=== PATIENT | male | born 1950 | race Caucasian/White ===

== ENCOUNTER 2019-02-12 20:56 | Emergency (ER) | payer SELFPAY ==
[2019-02-12] MEDS ORDERED: BABY ASPIRIN 81 MG CHEW PO ONE (21:08)
[2019-02-12] MEDS ORDERED: Zofran 4 MG/2 ML VIAL IV ONE (21:08)
[2019-02-12] MEDS ORDERED: PROVENTIL 2.5 MG/3 ML NEB IH ONE ×2 (21:09→21:39)
[2019-02-12] MEDS ORDERED: solu-MEDROL 125 MG IV ONE (21:09)
[2019-02-12] MEDS ORDERED: solu-MEDROL 125 MG ONE (21:28)
[2019-02-12] MEDS ORDERED: Zofran 4 MG/2 ML VIAL ONE (21:28)
[2019-02-12] MEDS ORDERED: DUONEB 0.5-3 MG/3 ml Neb IH ONE (21:37)
--- NOTE | 2019-02-12 21:53 | ERPHSYRPT ---
- History of Present Illness Time Seen by Provider: 02/12/19 20:58 Source: patient, police Exam Limitations: no limitations Patient Subjective Stated Complaint: Pt was brought in by police to lab for a blood draw. After his blood draw he says everything "went out". Couldn't remember where he was or who he was with. Disoriented. Difficult time walking Triage Nursing Assessment: Pt alert. Brought in by police in wheelchair. Pt unsteady transferring to bed. Short of breath, pursed lip breathing Physician History: Patient brought in by police for near syncope. Patient was arrested for public intoxication tonight. He was having his blood drawn here in the hospital when he had an episode of near syncope. Possible vasovagal after getting his blood drawn. Location: generalized Quality: near syncope Radiation: none Severity: mild Duration just [employer] Timing: after getting blood drawn Modifying factors/associated signs and symptoms: patient is acutely intoxicated BAL of 250 Allergies/Adverse Reactions: lisinopril Allergy (Verified 02/12/19 21:10) Home Medications: Chlorthalidone 25 mg PO DAILY 02/12/19 [History] Hx Tetanus, Diphtheria Vaccination/Date Given: Yes Hx Influenza Vaccination/Date Given: No Hx Pneumococcal Vaccination/Date Given: No - Past Medical History Pertinent Past Medical History: No - Past Surgical History Past Surgical History: No - Social History Smoking Status: Current every day smoker How long have you smoked: 50 yrs Exposure to second hand smoke: Yes Drug Use: none Patient Lives Alone: No - Review of Systems Constitutional: No Fever, No Chills Eyes: No Symptoms Ears, Nose, & Throat: No Symptoms Respiratory: No Cough, No Dyspnea Cardiac: Other (near syncope ), No Chest Pain, No Edema, No Syncope Abdominal/Gastrointestinal: No Abdominal Pain, No Nausea, No Vomiting, No Diarrhea Genitourinary Symptoms: No Dysuria Musculoskeletal: No Back Pain, No Neck Pain Skin: No Rash Neurological: No Dizziness, No Focal Weakness, No Sensory Changes Psychological: No Symptoms Endocrine: No Symptoms All Other Systems: Reviewed and Negative Physical Exam - Nursing Vital Signs Nursing Vital Signs: Initial Vital Signs Pulse Rate 114 H 02/12/19 20:58 Respiratory Rate 24 02/12/19 20:58 Blood Pressure 142/113 02/12/19 20:58 O2 Sat by Pulse Oximetry 99 02/12/19 20:58 Pain Scale Pain Intensity 0 - [place] Coma Scale Best Eye Response ([place]): (4) open spontaneously Best Verbal Response ([place]): (5) oriented Best Motor Response ([place]): (6) obeys commands [place] Total: 15 - Physical Exam General Appearance: no apparent distress, alert Eye Exam: bilateral eye: PERRL, EOMI Ears, Nose, Throat Exam: normal ENT inspection, pharynx normal, moist mucous membranes Neck Exam: normal inspection, non-tender, supple, full range of motion Respiratory: normal breath sounds, lungs clear, No chest tenderness, No respiratory distress Cardiovascular: regular rate/rhythm, capillary refill <2 sec, No murmur, No pulse deficit Gastrointestinal: soft, No tenderness, No distention, No mass Back Exam: normal inspection, normal range of motion, No CVA tenderness, No vertebral tenderness Extremity Exam: normal inspection, normal range of motion, pelvis stable, No tenderness Mental Status: alert, oriented x 3, 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 Muscle bulk and tone are normal. Strength is full bilaterally. Reflexes: Reflexes are 2+ and symmetric at the biceps, triceps, knees, and ankles. Plantar responses are flexor. Sensory: Light touch sense are intact in bilateral upper and lower extremities. There is no sign of neglect. Coordination: Rapid alternating movements are intact. There is no dysmetria on ofyxba-kl-onyr and witb-cwsd-obtj. There are no abnormal or extraneous movements. Romberg is absent. Gait/Stance: Posture is normal. Gait is steady with normal steps, base, arm swing, and turning. Heel and toe walking are normal. Tandem gait is normal. - Course EKG Interpreted by Me: RATE, Sinus Rhythm Ordered Tests: Active Orders 24 hr Category Date Time Status Bottom Stop Attacher STAT Care 02/12/19 21:08 Active EKG-ER Only STAT Care 02/12/19 21:08 Active IV Insertion STAT Care 02/12/19 21:08 Active CHEST 2 VIEWS (PA AND LAT) Stat Exams 02/12/19 21:08 Taken CBC W DIFF Stat Lab 02/12/19 21:58 Completed CMP Stat Lab 02/12/19 21:58 Completed Manual Differential NC Stat Lab 02/12/19 21:58 Completed TROPONIN Q3H Lab 02/12/19 21:58 Completed UA W/RFX UR CULTURE Stat Lab 02/12/19 21:58 Completed EKG STAT RT 02/12/19 23:02 Active Peak Expiratory Flow Rate ONCE RT 02/12/19 21:40 Active Respiratory Therapy Assessment DAILY RT 02/12/19 21:40 Active Medication Summary Discontinued Medications Generic Name Dose Route Start Last Admin Trade Name Lina PRN Reason Stop Dose Admin Albuterol Sulfate 2.5 mg 02/12/19 21:09 02/12/19 21:41 Proventil 2.5 Mg/3 Ml Neb IH 02/12/19 21:10 2.5 mg STAT ONE Administration Albuterol Sulfate Confirm 02/12/19 21:39 Proventil 2.5 Mg/3 Ml Neb Administered 02/12/19 21:40 Dose 2.5 mg IH .STK-MED ONE Albuterol/Ipratropium Confirm 02/12/19 21:37 Duoneb 0.5-3 Mg/3 Ml Neb Administered 02/12/19 21:38 Dose 3 ml IH .STK-MED ONE Aspirin 324 mg 02/12/19 21:08 02/12/19 21:29 Baby Aspirin 81 Mg Chew PO 02/12/19 21:09 324 mg STAT ONE Administration Methylprednisolone Sodium Succinate 125 mg 02/12/19 21:09 02/12/19 21:29 Solu-Medrol 125 Mg IV 02/12/19 21:10 125 mg STAT ONE Administration Methylprednisolone Sodium Succinate Confirm 02/12/19 21:28 Solu-Medrol 125 Mg Administered 02/12/19 21:29 Dose 125 mg .ROUTE .STK-MED ONE Ondansetron HCl 4 mg 02/12/19 21:08 02/12/19 21:29 Zofran 4 Mg/2 Ml Vial IV 02/12/19 21:09 4 mg STAT ONE Administration Ondansetron HCl Confirm 02/12/19 21:28 Zofran 4 Mg/2 Ml Vial Administered 02/12/19 21:29 Dose 4 mg .ROUTE .STK-MED ONE Lab/Rad Data: Laboratory Result Diagrams 02/12/19 21:58 02/12/19 21:58 Laboratory Results 02/12/19 02/12/19 02/12/19 Range/Units 21:58 21:58 21:58 WBC (4.0-10.5) K/mm3 RBC (4.1-5.6) M/mm3 Hgb (12.5-18.0) gm/dl Hct (42-50) % MCV (78-100) fl MCH (26-32) pg MCHC (32-36) g/dl RDW (11.5-14.0) % Plt Count (150-450) K/mm3 MPV (6-9.5) fl Sodium 134 L (137-145) mmol/L Potassium 3.1 L (3.5-5.1) mmol/L Chloride 98 (98-107) mmol/L Carbon Dioxide 27 (22-30) mmol/L Anion Gap 11.7 (5-15) MEQ/L BUN 7 L (9-20) mg/dL Creatinine 0.81 (0.66-1.25) mg/dL Estimated GFR > 60.0 ML/MIN Glucose 118 H (74-106) mg/dL Calcium 8.0 L (8.4-10.2) mg/dL Total Bilirubin 0.30 (0.2-1.3) mg/dL AST 30 (17-59) U/L ALT 13 (0-50) U/L Alkaline Phosphatase 104 (38-126) U/L Troponin I < 0.012 (0.000-0.034) ng/mL Serum Total Protein 7.2 (6.3-8.2) g/dL Albumin 3.6 (3.5-5.0) g/dL Urine Color STRAW (YELLOW) Urine Appearance CLEAR (CLEAR) Urine pH 6.0 (5-6) Ur Specific [place] 1.004 (1.005-1.025) Urine Protein NEGATIVE (Negative) Urine Ketones NEGATIVE (NEGATIVE) Urine Blood NEGATIVE (0-5) Jaguar/ul Urine Nitrite NEGATIVE (NEGATIVE) Urine Bilirubin NEGATIVE (NEGATIVE) Urine Urobilinogen NEGATIVE (0-1) mg/dL Ur Leukocyte Esterase NEGATIVE (NEGATIVE) Urine WBC (Auto) NONE (0-5) /HPF Urine RBC (Auto) NONE (0-2) /HPF U Epithel Cells (Auto) NONE (FEW) /HPF Urine Bacteria (Auto) NONE (NEGATIVE) /HPF Urine Culture Reflexed NO (NO) Urine Glucose NEGATIVE (NEGATIVE) mg/dL 02/12/19 Range/Units 21:58 WBC 6.5 (4.0-10.5) K/mm3 RBC 3.51 L (4.1-5.6) M/mm3 Hgb 13.3 (12.5-18.0) gm/dl Hct 37.5 L (42-50) % MCV 106.8 H (78-100) fl MCH 37.9 H (26-32) pg MCHC 35.5 (32-36) g/dl RDW 13.7 (11.5-14.0) % Plt Count 232 (150-450) K/mm3 MPV 9.1 (6-9.5) fl Sodium (137-145) mmol/L Potassium (3.5-5.1) mmol/L Chloride (98-107) mmol/L Carbon Dioxide (22-30) mmol/L Anion Gap (5-15) MEQ/L BUN (9-20) mg/dL Creatinine (0.66-1.25) mg/dL Estimated GFR ML/MIN Glucose (74-106) mg/dL Calcium (8.4-10.2) mg/dL Total Bilirubin (0.2-1.3) mg/dL AST (17-59) U/L ALT (0-50) U/L Alkaline Phosphatase (38-126) U/L Troponin I (0.000-0.034) ng/mL Serum Total Protein (6.3-8.2) g/dL Albumin (3.5-5.0) g/dL Urine Color (YELLOW) Urine Appearance (CLEAR) Urine pH (5-6) Ur Specific [place] (1.005-1.025) Urine Protein (Negative) Urine Ketones (NEGATIVE) Urine Blood (0-5) Jaguar/ul Urine Nitrite (NEGATIVE) Urine Bilirubin (NEGATIVE) Urine Urobilinogen (0-1) mg/dL Ur Leukocyte Esterase (NEGATIVE) Urine WBC (Auto) (0-5) /HPF Urine RBC (Auto) (0-2) /HPF U Epithel Cells (Auto) (FEW) /HPF Urine Bacteria (Auto) (NEGATIVE) /HPF Urine Culture Reflexed (NO) Urine Glucose (NEGATIVE) mg/dL - Progress Progress: unchanged, improved Progress Note: 02/12/19 21:54 diff dx includes: STEMI, PNA, arrymitha, infection, UTI, intoxication, vasovagal syncope. - We willl obtain basic labs, fluids, EKG, troponin, chest x-ray - EKG shows no ST changes - my read. See full read below. - O2 saturations consistently greater than 95%. - CXR shows no pneumonia, pneumothorax - my read - no other obvious lab abnormalities 02/12/19 22:46 Patient feeling improved. Troponin negative. Most likely near syncope (vasovagal ) after getting his blood drawn. Repeat neurological exam remains negative. Counseled pt/family regarding: drug and/or alcohol abuse, lab results, diagnosis - Departure Departure Disposition: Home Clinical Impression: Near syncope Condition: Stable Critical Care Time: No Referrals: DOCTOR,NO FAMILY [Primary Care Provider] - Instructions: Alcohol Abuse and Alcoholism (DC) Additional Instructions: Reexam in 24-48 hours
[2019-02-12 21:55] LABS: Hematocrit 37.5 % (42-50); Hemoglobin 13.3 gm/dl (12.5-18.0); Mean Cell Volume 106.8 fl (78-100); Mean Corpuscular Hemoglobin 37.9 pg (26-32); Mean Corpuscular Hgb Concent. 35.5 g/dl (32-36); Mean Platelet Volume 9.1 fl (6-9.5); Platelet Count 232 K/mm3 (150-450); Red Blood Count 3.51 M/mm3 (4.1-5.6); Red Cell Distribution Width 13.7 % (11.5-14.0); White Blood Count 6.5 K/mm3 (4.0-10.5)
[2019-02-12 22:00] LABS: Appearance CLEAR (CLEAR); Bilirubin NEGATIVE (NEGATIVE); Blood NEGATIVE Ery/ul (0-5); Glucose NEGATIVE (NEGATIVE); Ketones NEGATIVE (NEGATIVE); Leukocyte Esterase NEGATIVE (NEGATIVE); Nitrite NEGATIVE (NEGATIVE); Protein,Urine Dip NEGATIVE (Negative); Specific Gravity 1.004 (1.005-1.025); Urobilinogen NEGATIVE mg/dL (0-1)
[2019-02-12 22:08] LABS: ALBUMIN 3.6 g/dL (3.5-5.0); ALKALINE PHOSPHATASE 104 U/L (38-126); ANION GAP 11.7 MEQ/L (5-15); BLOOD UREA NITROGEN 7 mg/dL (9-20); CHLORIDE 98 mmol/L (98-107); Carbon Dioxide 27 mmol/L (22-30); Creatinine 1 0.81 mg/dL (0.66-1.25); Glucose 118 mg/dL (74-106); Potassium 3.1 mmol/L (3.5-5.1); SGOT/AST 30 U/L (17-59); SGPT/ALT 13 U/L (0-50); SODIUM 134 mmol/L (137-145); Total Protein 7.2 g/dL (6.3-8.2)
[2019-02-12 23:13] VITALS: BP 104/80; PULSE 125
[2019-02-13 00:10] VITALS: O2SAT 99
[2019-02-13 00:14] LABS: ATYPICAL LYMPHS 2 %; Lymphocytes 46 % (24-44); Monocyte 2 % (0.0-12.0); Neutrophils 50 % (36.-66.); Platelet Estimate NORMAL (NORMAL); Total Cells Counted 100
--- NOTE | 2019-02-13 08:36 | XRAY ---
Indication: Short of breath. Comparison: October 02, 2017. PA/lateral chest again hyperinflated with right midlung calcified granuloma. No focal infiltrate, consolidation, or large effusion. Heart and mediastinal structures within normal limits. Bony thorax intact again with mild degenerative changes. Impression: Stable nonacute hyperinflated chest with chronic features.
== END 2019-02-13 00:10 | disposition home or self-care (01) ==
LOC: ED 20:56
DX: R55 Syncope and collapse (principal)
CPT/HCPCS: 36000; 36415; 71046; 80053; 81001; 84484; 85025; 93005; 93041; 94150; 94640; 96374; 96375; 99284; J2405; J2930; J7609; A9270-GY

== ENCOUNTER 2019-06-13 16:21 | Emergency (ER) | payer OTHER, MEDICARE ==
[2019-06-13 16:41] VITALS: BP 134/103
--- NOTE | 2019-06-13 17:06 | ERPHSYRPT ---
- History of Present Illness Time Seen by Provider: 06/13/19 17:02 Source: patient, police Exam Limitations: intoxication Patient Subjective Stated Complaint: pt is alert and oriented. pt is ambulatory with a steady gait. pt comes in with law enforcement. pt states he has had 3-4 beers with the last one being at 1300. no c/o pain. pt is calm and cooperative. Triage Nursing Assessment: see above Physician History: This is a 68-year-old white male who was brought in by the police department because of driving under the influence of alcohol. Patient is refusing blood draw patient denies any symptoms of chest pain, shortness of breath, abdominal pain at this time. Patient has said that he will allow an EKG to be performed but no lab draws and no urine to be obtained. The police state that this patient denies any other illicit drug use. Patient also denies any other illicit drug use to me as well. Timing/Duration: today Severity: mild Associated Symptoms: denies symptoms, No nausea, No vomiting, No abdominal pain , No shortness of breath, No chest pain, No headaches, No weakness Allergies/Adverse Reactions: lisinopril Allergy (Verified 06/13/19 16:41) Home Medications: Omeprazole 20 mg PO 06/13/19 [History] Hx Tetanus, Diphtheria Vaccination/Date Given: Yes Hx Influenza Vaccination/Date Given: No Hx Pneumococcal Vaccination/Date Given: No Travel Risk - International Travel Have you traveled outside of the country in past 3 weeks: No Have you or anyone close to you been diagnosed with or: No Do your reside in a community with a known COVID-19 case?: Yes If Yes where:: [place] - Coronavirus Screening Has patient experienced Coronavirus symptoms: No - Review of Systems Constitutional: No Symptoms Eyes: No Symptoms Ears, Nose, & Throat: No Symptoms Respiratory: No Symptoms Cardiac: No Symptoms Abdominal/Gastrointestinal: No Symptoms Genitourinary Symptoms: No Symptoms Musculoskeletal: No Symptoms Skin: Skin Lesions Neurological: No Symptoms Psychological: Alcohol Abuse Endocrine: No Symptoms Hematologic/Lymphatic: No Symptoms Immunological/Allergic: No Symptoms All Other Systems: Reviewed and Negative - Past Medical History Pertinent Past Medical History: No Neurological History: No Pertinent History ENT History: No Pertinent History Cardiac History: No Pertinent History Respiratory History: COPD Endocrine Medical History: No Pertinent History Musculoskeletal History: No Pertinent History GI Medical History: No Pertinent History History: No Pertinent History Psycho-Social History: No Pertinent History Male Reproductive Disorders: No Pertinent History Other Medical History: blood disorder - Past Surgical History Past Surgical History: No Neuro Surgical History: No Pertinent History Cardiac: No Pertinent History Respiratory: No Pertinent History Gastrointestinal: No Pertinent History Genitourinary: No Pertinent History Musculoskeletal: No Pertinent History Male Surgical History: No Pertinent History - Social History Smoking Status: Current every day smoker How long have you smoked: 50 yrs Exposure to second hand smoke: Yes Drug Use: none Patient Lives Alone: No - Nursing Vital Signs Nursing Vital Signs: Initial Vital Signs Temperature 97.8 F 06/13/19 16:21 Pulse Rate 105 H 06/13/19 16:21 Respiratory Rate 18 06/13/19 16:21 Blood Pressure 134/103 06/13/19 16:21 O2 Sat by Pulse Oximetry 97 06/13/19 16:21 Pain Scale Pain Intensity 0 - Physical Exam General Appearance: alert, other (Smells of alcohol) Eye Exam: PERRL/EOMI, eyes nml inspection Ears, Nose, Throat Exam: normal ENT inspection, moist mucous membranes, tonsillar exudate Neck Exam: normal inspection, non-tender, supple Respiratory Exam: normal breath sounds, lungs clear, airway intact, No chest tenderness, No respiratory distress Cardiovascular Exam: regular rate/rhythm, normal heart sounds, normal peripheral pulses Gastrointestinal/Abdomen Exam: soft, normal bowel sounds, No tenderness Rectal Exam: not done Back Exam: normal inspection, normal range of motion, No CVA tenderness, No vertebral tenderness Extremity Exam: normal inspection, normal range of motion, pelvis stable Neurologic Exam: alert, oriented x 3, cooperative, guard manager II-XII nml as tested, intoxicated appearance Skin Exam: normal color, warm, dry Lymphatic Exam: No adenopathy SpO2 Interpretation: normal SpO2: 97 O2 Delivery: Room Air - Course Nursing assessment & vital signs reviewed: Yes EKG Interpreted by Me: RATE (103), Sinus Rhythm, Sinus Tach, NORMAL AXIS, NORMAL INTERVALS, NORMAL QRS, Other (No comparison EKG available) Ordered Tests: Active Orders 24 hr Category Date Time Status Clean Catch Urine Specimen STAT Care 06/13/19 17:15 Active UA W/RFX UR CULTURE Stat Lab 06/13/19 17:30 Completed Urine Triage Profile Stat Lab 06/13/19 17:30 Completed Lab/Rad Data: Laboratory Results 06/13/19 06/13/19 Range/Units 17:30 17:30 Urine Color STRAW (YELLOW) Urine Appearance CLEAR (CLEAR) Urine pH 6.0 (5-6) Ur Specific [place] 1.004 (1.005-1.025) Urine Protein NEGATIVE (Negative) Urine Ketones NEGATIVE (NEGATIVE) Urine Blood NEGATIVE (0-5) Jaguar/ul Urine Nitrite NEGATIVE (NEGATIVE) Urine Bilirubin NEGATIVE (NEGATIVE) Urine Urobilinogen NEGATIVE (0-1) mg/dL Ur Leukocyte Esterase NEGATIVE (NEGATIVE) Urine WBC (Auto) NONE (0-5) /HPF Urine RBC (Auto) NONE (0-2) /HPF U Epithel Cells (Auto) NONE (FEW) /HPF Urine Bacteria (Auto) NONE (NEGATIVE) /HPF Urine Culture Reflexed NO (NO) Urine Glucose NEGATIVE (NEGATIVE) mg/dL Urine Opiates Level NEGATIVE (NEGATIVE) Ur Methadone NEGATIVE (NEGATIVE) Urine Barbiturates NEGATIVE (NEGATIVE) Ur Phencyclidine (PCP) NEGATIVE (NEGATIVE) Urine Amphetamine NEGATIVE (NEGATIVE) U Benzodiazepine Level NEGATIVE (NEGATIVE) Urine Cocaine NEGATIVE (NEGATIVE) Urine Marijuana (THC) NEGATIVE (NEGATIVE) - Progress Progress: unchanged Progress Note: 06/13/19 17:47 At time of discharge patient denies any chest pain or abdominal pain or shortness of breath. Counseled pt/family regarding: lab results, diagnosis - Departure Departure Disposition: Home, Snf/Jail Clinical Impression: Medical clearance for incarceration Condition: Stable Critical Care Time: No Referrals: DOCTOR,NO FAMILY [Primary Care Provider] -
[2019-06-13 17:26] LABS: Appearance CLEAR (CLEAR); Bilirubin NEGATIVE (NEGATIVE); Blood NEGATIVE Ery/ul (0-5); Glucose NEGATIVE (NEGATIVE); Ketones NEGATIVE (NEGATIVE); Leukocyte Esterase NEGATIVE (NEGATIVE); Nitrite NEGATIVE (NEGATIVE); Protein,Urine Dip NEGATIVE (Negative); Specific Gravity 1.004 (1.005-1.025); Urobilinogen NEGATIVE mg/dL (0-1)
[2019-06-13 17:40] LABS: Amphetamine,Urine NEGATIVE (NEGATIVE); Barbiturate,Urine NEGATIVE (NEGATIVE); Benzodiazepine,Urine NEGATIVE (NEGATIVE); Cocaine,Urine NEGATIVE (NEGATIVE); Methadone,Urine NEGATIVE (NEGATIVE); Opiate,Urine NEGATIVE (NEGATIVE); PCP,Urine NEGATIVE (NEGATIVE); THC,Urine NEGATIVE (NEGATIVE)
[2019-06-13 17:57] VITALS: PULSE 114; O2SAT 95
== END 2019-06-13 18:03 | disposition home or self-care (01) ==
LOC: ED 16:21
DX: Z02.89 Encounter for other administrative examinations (principal); Z72.89 Other problems related to lifestyle
CPT/HCPCS: 80307; 81001; 99283

== ENCOUNTER 2022-04-12 06:26 | Emergency (ER) | payer MEDICARE, OTHER ==
[2022-04-12 06:58] VITALS: BP 126/84; PULSE 74; O2SAT 97
--- NOTE | 2022-04-12 07:13 | ERPHSYRPT ---
- History of Present Illness Time Seen by Provider: 04/12/22 07:08 Source: patient, police Exam Limitations: physical impairment (very hard of hearing) Patient Subjective Stated Complaint: per uniform patrol police officer, pt fell out of bed this am at approx 0530. pt states the fall woke him up, and then he went back to sleep. Triage Nursing Assessment: pt alert and oriented. very [place]. able to answer questions approp. pt ambulates into the room. respirations nonlabored. skin warm and dry. laceration to face between eyes approx 1.5cm with minimal bleeding. skin tear to lt elbow with no bleeding. pt denies any back or neck pain. denies any other injury. Physician History: pt fell out of bed this am at approx 0530. pt states the fall woke him up, and then he went back to sleep. laceration to face between eyes approx 1.5cm with minimal bleeding. skin tear to lt elbow with no bleeding. pt denies any back or neck pain. denies any other injury. Timing/Duration: today Severity: mild Associated Symptoms: denies symptoms Allergies/Adverse Reactions: lisinopril Allergy (Verified 04/12/22 06:58) Home Medications: Omeprazole 20 mg PO DAILY 06/13/19 [History] Hx Tetanus, Diphtheria Vaccination/Date Given: Yes (2020) Hx Influenza Vaccination/Date Given: No Hx Pneumococcal Vaccination/Date Given: No Immunizations Up to Date: Yes Travel Risk - International Travel Have you traveled outside of the country in past 3 weeks: No - Coronavirus Screening Are you exhibiting any of the following symptoms?: No Close contact with a COVID-19 positive Pt in past 14-21 Days: No - Vaccine Status Have you recieved a Covid-19 vaccination: Yes Medical Science Liaison: Moderna - Vaccination Dates Date of 2cond Vaccination (if applicable): 2020 - Review of Systems Constitutional: No Symptoms Eyes: No Symptoms Ears, Nose, & Throat: No Symptoms Respiratory: No Symptoms Cardiac: No Symptoms Abdominal/Gastrointestinal: No Symptoms Genitourinary Symptoms: No Symptoms Musculoskeletal: No Symptoms Skin: Other (laceration in middle of forehaed in middle of eye ball) Psychological: Alcohol Abuse Hematologic/Lymphatic: No Symptoms Immunological/Allergic: No Symptoms - Past Medical History Pertinent Past Medical History: No Other Medical History: pt denies medical problems - Past Surgical History Past Surgical History: No - Social History Smoking Status: Current some day smoker How long have you smoked: 50 yrs Exposure to second hand smoke: Yes Drug Use: none Patient Lives Alone: No - Nursing Vital Signs Nursing Vital Signs: Initial Vital Signs Temperature 96.7 F 04/12/22 06:32 Pulse Rate 74 04/12/22 06:32 Respiratory Rate 16 04/12/22 06:32 Blood Pressure 126/84 04/12/22 06:32 O2 Sat by Pulse Oximetry 97 04/12/22 06:32 Pain Scale Pain Intensity 0 - Physical Exam General Appearance: no apparent distress Eye Exam: PERRL/EOMI Ears, Nose, Throat Exam: normal ENT inspection, other (laceration as described per HPI) SpO2: 97 Procedures - Laceration/Wound Repair Head Time of Procedure: 07:11 Wound Location: forehead Wound Length (cm): 2 Wound's Depth, Shape: superficial Wound Explored: clean Irrigated: Yes Hibiclens Prep: Yes Wound Repaired With: Steri-strips - Course Nursing assessment & vital signs reviewed: Yes Ordered Tests: Active Orders 24 hr Category Date Time Status Wound Care STAT Care 04/12/22 07:07 Active - Progress Progress: improved Counseled pt/family regarding: diagnosis, need for follow-up Medical Desision Making - Discussion of managment Agreed on:: Treatment plan, need for follow-up - Risk of complications Minimal Risk: Minimal risk of morbidity - Departure Departure Disposition: Usp/Group Home Clinical Impression: Fall from bed, initial encounter Laceration of head Qualifiers: Encounter type: initial encounter Location of open wound of head: unspecified part of head Foreign body presence: without foreign body Qualified Code(s): S01.91XA - Laceration without foreign body of unspecified part of head, initial encounter Condition: Stable Critical Care Time: No Referrals: DOCTOR,NO FAMILY [Primary Care Provider] - Follow up/PCP as directed Instructions: Wound Care (DC) Additional Instructions: Discharge/Care Plan BERNARDTHIAGO WONG was seen on 04/12/22 in the Emergency Room. The patient was counseled regarding Diagnosis,Lab results, Imaging studies, need for follow up and when to return to the Emergency Room. Prescriptions given: Discharge Note I have spoken with the patient and/or caregivers. I have explained the patient's condition, diagnosis and treatment plan based on the information available to me at this time. I have answered the patient's and/or caregiver's questions and addressed any concerns. The patient and/or caregivers have as good understanding of the patient's diagnosis, condition and treatment plan as can be expected at this point. The vital signs have been stable. The patient's condition is stable and appropriate for discharge from the emergency department. The patient will pursue further outpatient evaluation with the primary care physician or other designated or consulting physician as outlined in the discharge instructions. The patient and/or caregivers are agreeable to this plan of care and follow-up instructions have been explained in detail. The patient and/or caregivers have received these instruction. The patient/and or caregivers are aware that any significant change in condition or worsening of symptoms should prompt an immediate return to this or the closest emergency department or call 911. BERNARDTHIAGO JUDITH was seen on 04/12/22 n the Emergency Room. At that time you were treated for an emergent condition, during your visit Laboratory, Radiology and/or other procedures may have been ordered. It is very important that you follow-up with your Primary Care Physician NO FAMILY DOCTOR within the next 24- 48 hours to review your Emergency Room visit and the final results of testing that was ordered. Some test results such as Urine Cultures, Blood Cultures, and other cultures if ordered will not be finalized for 24-48 hours. If you do not have a Primary Care Provider please call the medical records department at [phone] ext [phone] to obtain a copy of your results or you may sign into our patient portal to obtain these results by visiting us @ [email or web address] and completing the following steps: 1. Click on the Patient Portal link 2. Click the Patient Self Enrollment Link to complete the enrollment form and entering your 3. Once the enrollment form is completed you will receive an email with a [employer] porary ID and password at the email address you provided. 4. Next choose a user name and password. Your user name must be at least 4 characters long and your password must be at least 4 characters long. 5. Choose a security question from the list and provide your answer to the question. If you already have signed into the Health Portal you may access your Health Care Information 15/09 by the following steps: 1. Login to our website @ [email or web address] 2. Enter your original user name and password. FAQS The [facility] Health Portal is an online tool that contains your Lab Results, Radiology Reports, Visit History, Discharge Instructions and Health Summary Lab and Radiology Results will not be available for 72 hours on the portal. The Portal is a secure site, passwords are encryted and URLs are re-written so they cannot be copied and pasted. You and authorized family members are the only ones who can access your Portal. Also there is a timeout feature that protects your information if you leave the Portal page open. If you have technical difficulty please use the Contact Us link on the page this will allow you to submit any questions you have regarding the Portal or you may contact the Medical Record Department at [phone] ext [phone].
== END 2022-04-12 07:27 | disposition home or self-care (01) ==
LOC: ED 06:26
DX: S01.81XA Laceration without foreign body of other part of head, initial encounter (principal); W06.XXXA Fall from bed, initial encounter; Y93.84 Activity, sleeping; Y92.143 Cell of prison as the place of occurrence of the external cause; Z72.0 Tobacco use
CPT/HCPCS: 12011; 99281

== ENCOUNTER 2024-07-09 17:22 | Emergency (ER) | payer MEDICARE ==
--- NOTE | 2024-07-09 17:35 | ERPHSYRPT ---
- History of Present Illness Time Seen by Provider: 07/09/24 17:35 Source: patient, EMS, old records Exam Limitations: no limitations Physician History: This is an ill-appearing 73-year-old white male patient with no primary care provider who was brought to the emergency department by the conventions assistant service with several different complaints. The patient is not the best historian. Additional, independent history was provided by the paramedics as well as the patient's spouse. Patient's spouse states that there was a fall on 07/04/2024 and he hit his right chest wall. He usually walks around with his walker and in the subsequent few days he quit walking around his walker and in the last 1 to 2 days he has not really gotten out of bed. He has been very weak. He has significantly decreased his appetite and he is not eating and occasionally drinks coffee. A left flank to left lower quadrant skin rash has been present for 2 days. The only medical issue he has documented is gastroesophageal reflux disease. Timing/Duration: day(s) (5), worse (Symptoms worsening over the last 5 days) Severity: moderate Associated Symptoms: weakness, other (Right rib pain, painful left lower quadrant rash) Allergies/Adverse Reactions: lisinopril Allergy (Verified 04/12/22 06:58) Home Medications: Omeprazole 20 mg PO DAILY 06/13/19 [History] Hx Tetanus, Diphtheria Vaccination/Date Given: Yes (2020) Hx Influenza Vaccination/Date Given: No Hx Pneumococcal Vaccination/Date Given: No Travel Risk - International Travel Have you traveled outside of the country in past 3 weeks: No - Emerging Infectious Disease Are you exhibiting symptoms associated with any current EIDs: No - Review of Systems Constitutional: Weakness Eyes: No Symptoms Ears, Nose, & Throat: No Symptoms Respiratory: No Symptoms Cardiac: No Symptoms Abdominal/Gastrointestinal: No Symptoms Genitourinary Symptoms: No Symptoms Musculoskeletal: Fall, Injury (Right rib pain post fall) Skin: Rash (Left flank to left lower quadrant skin rash that has dried eschar and a few blisters present. The rash is pink and raised and present in a dermatomal distribution) Neurological: No Symptoms Psychological: No Symptoms Endocrine: No Symptoms Hematologic/Lymphatic: No Symptoms Immunological/Allergic: No Symptoms All Other Systems: Reviewed and Negative - Past Medical History Pertinent Past Medical History: Yes Other Medical History: pt denies medical problems - Past Surgical History Past Surgical History: No - Social History Smoking Status: Current some day smoker How long have you smoked: 50 yrs Exposure to second hand smoke: Yes Drug Use: none Patient Lives Alone: No - Nursing Vital Signs Nursing Vital Signs: Initial Vital Signs Blood Pressure 122/77 07/09/24 17:22 O2 Sat by Pulse Oximetry 96 07/09/24 17:22 Pain Scale Pain Intensity 0 - Physical Exam General Appearance: no apparent distress, alert, cachetic Eye Exam: PERRL/EOMI, eyes nml inspection Ears, Nose, Throat Exam: dry mucous membranes Neck Exam: normal inspection, non-tender, supple, full range of motion Respiratory Exam: normal breath sounds, chest tenderness (Right chest wall tenderness), lungs clear, airway intact, No respiratory distress Cardiovascular Exam: regular rate/rhythm, normal heart sounds, normal peripheral pulses Gastrointestinal/Abdomen Exam: normal bowel sounds, tenderness (In the distribution of the left flank to left lower quadrant skin rash) Rectal Exam: not done Back Exam: normal inspection, normal range of motion, No CVA tenderness, No vertebral tenderness Extremity Exam: normal inspection, normal range of motion, pelvis stable Neurologic Exam: alert, oriented x 3, cooperative, 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 No acute ischemia on today's twelve- lead EKG.) Ordered Tests: Active Orders 24 hr Category Date Time Status IV Insertion STAT Care 07/09/24 17:54 Completed Pulse Oximetry (ED) STAT Care 07/09/24 17:54 Completed ACO SDOH Referral ONCE Cons 07/09/24 18:17 Completed CHEST 1 VIEW (PORTABLE) Stat Exams 07/09/24 17:54 Completed RIBS UNILATERAL Stat Exams 07/09/24 17:55 Completed CBC W DIFF Stat Lab 07/09/24 18:00 Completed CMP Stat Lab 07/09/24 18:00 Completed CULTURE,URINE Stat Lab 07/09/24 19:35 Received ETHYL ALCOHOL Stat Lab 07/09/24 18:00 Completed MAGNESIUM Stat Lab 07/09/24 18:00 Completed Manual Differential NC Stat Lab 07/09/24 18:00 Completed NT PRO BNPII Stat Lab 07/09/24 18:00 Completed TROPONIN Q4H Lab 07/09/24 18:00 Completed TROPONIN Q4H Lab 07/09/24 21:55 Completed UA W/RFX UR CULTURE Stat Lab 07/09/24 19:35 Completed Medication Summary Discontinued Medications Generic Name Dose Route Start Last Admin Trade Name Freq PRN Reason Stop Dose Admin Acyclovir Sodium Confirm 07/09/24 18:04 Acyclovir Sodium 500 Mg/Vial Vial Administered 07/09/24 18:05 Dose 500 mg IV .STK-MED ONE Acyclovir Sodium 500 mg/ 100 mls @ 100 mls/hr 07/09/24 17:56 07/09/24 19:19 Dextrose IV 07/09/24 18:55 Infused STAT ONE Infusion Dextrose Confirm 07/09/24 18:04 D5w 100ml Mini Bag 100 Ml Administered 07/09/24 18:05 Dose 100 mls @ ud IV .STK-MED ONE Sodium Chloride 1,000 mls @ 250 mls/hr 07/09/24 18:30 07/09/24 23:05 Sodium Chloride 0.9% 1000 Ml IV 08/08/24 18:29 Infused .Q4H JESSICA Infusion Sodium Chloride Confirm 07/09/24 19:20 Sodium Chloride 0.9% 1000 Ml Administered 07/09/24 19:21 Dose 1,000 mls @ ud .ROUTE .STK-MED ONE Lab/Rad Data: Laboratory Result Diagrams 07/09/24 18:00 07/09/24 18:00 Laboratory Results 07/09/24 07/09/24 07/09/24 Range/Units 21:55 19:35 18:00 WBC (4.23-9.07) x10^3/uL RBC (4.63-6.08) x10^6/uL Hgb (13.7-17.5) g/dL Hct (40.1-51.0) % MCV (79.0-92.2) fL MCH (25.7-32.2) pg MCHC (32.3-36.5) g/dL RDW (11.6-14.4) % Plt Count (163-337) x10^3/uL MPV (9.4-12.4) fL Segmented Neutrophils (34.0-67.9) % Lymphocytes (Manual) (21.8-53.1) % Monocytes (Manual) (5.3-12.2) % Eosinophils (Manual) (0.8-7.0) % Atypical Lymphocytes % Platelet Estimate (NORMAL) RBC Morphology Sodium (135-145) mmol/L Potassium (3.5-5.1) mmol/L Chloride (98-107) mmol/L Carbon Dioxide (22-30) mmol/L Anion Gap (5-15) MEQ/L BUN (9-20) mg/dL Creatinine (0.66-1.25) mg/dL Estimated GFR ML/MIN Glucose (74-106) mg/dL Calcium (8.4-10.2) mg/dL Magnesium (1.6-2.3) mg/dL Total Bilirubin (0.2-1.3) mg/dL AST (17-59) U/L ALT (0-50) U/L Alkaline Phosphatase (38-126) U/L Troponin I 0.328 H* 0.326 H* (0.000-0.033) ng/mL NT-Pro-B Natriuret Pep 2820 (<300) pg/mL Serum Total Protein (6.3-8.2) g/dL Albumin (3.5-5.0) g/dL Urine Color Dark Yellow (Yellow) Urine Appearance Clear (Clear) Urine pH 5.5 (4.6-8.0) Ur Specific [place] 1.025 (1.005-1.030) Urine Protein 100 A (Negative) Urine Glucose (UA) Negative (Negative) mg/dL Urine Ketones 15 A (Negative) Urine Blood Moderate A (Negative) Urine Nitrite Negative (Negative) Urine Bilirubin Negative (Negative) Urine Urobilinogen 1.0 A (0.2) mg/dL Ur Leukocyte Esterase Negative (Negative) U Hyaline Cast (Auto) 3-5 A (0-2) /LPF Urine Microscopic RBC 0-2 (0-5) /HPF Urine Microscopic WBC 0-2 (0-5) /HPF Ur Epithelial Cells Rare (None Seen) /HPF Urine Bacteria Moderate A (None Seen) /HPF Granular Casts 3-5 A (None Seen) /LPF Urine Culture Reflexed YES (NO) Ethyl Alcohol (0-10) mg/dL 07/09/24 07/09/24 Range/Units 18:00 18:00 WBC 6.8 (4.23-9.07) x10^3/uL RBC 4.26 L (4.63-6.08) x10^6/uL Hgb 13.1 L (13.7-17.5) g/dL Hct 37.7 L (40.1-51.0) % MCV 88.5 (79.0-92.2) fL MCH 30.8 (25.7-32.2) pg MCHC 34.7 (32.3-36.5) g/dL RDW 12.9 (11.6-14.4) % Plt Count 177 (163-337) x10^3/uL MPV 9.5 (9.4-12.4) fL Segmented Neutrophils 76 H (34.0-67.9) % Lymphocytes (Manual) 13 L (21.8-53.1) % Monocytes (Manual) 6 (5.3-12.2) % Eosinophils (Manual) 1 (0.8-7.0) % Atypical Lymphocytes 4 % Platelet Estimate NORMAL (NORMAL) RBC Morphology NORMAL Sodium 132 L (135-145) mmol/L Potassium 4.3 (3.5-5.1) mmol/L Chloride 99 (98-107) mmol/L Carbon Dioxide 26 (22-30) mmol/L Anion Gap 11.9 (5-15) MEQ/L BUN 24 H (9-20) mg/dL Creatinine 1.30 H (0.66-1.25) mg/dL Estimated GFR 58.0 ML/MIN Glucose 134 H (74-106) mg/dL Calcium 8.9 (8.4-10.2) mg/dL Magnesium 1.8 (1.6-2.3) mg/dL Total Bilirubin 0.70 (0.2-1.3) mg/dL AST 126 H (17-59) U/L ALT 29 (0-50) U/L Alkaline Phosphatase 80 (38-126) U/L Troponin I (0.000-0.033) ng/mL NT-Pro-B Natriuret Pep (<300) pg/mL Serum Total Protein 6.9 (6.3-8.2) g/dL Albumin 3.7 (3.5-5.0) g/dL Urine Color (Yellow) Urine Appearance (Clear) Urine pH (4.6-8.0) Ur Specific [place] (1.005-1.030) Urine Protein (Negative) Urine Glucose (UA) (Negative) mg/dL Urine Ketones (Negative) Urine Blood (Negative) Urine Nitrite (Negative) Urine Bilirubin (Negative) Urine Urobilinogen (0.2) mg/dL Ur Leukocyte Esterase (Negative) U Hyaline Cast (Auto) (0-2) /LPF Urine Microscopic RBC (0-5) /HPF Urine Microscopic WBC (0-5) /HPF Ur Epithelial Cells (None Seen) /HPF Urine Bacteria (None Seen) /HPF Granular Casts (None Seen) /LPF Urine Culture Reflexed (NO) Ethyl Alcohol < 10 (0-10) mg/dL - Progress Progress: improved, re-examined Progress Note: 07/09/24 18:50 My medical decision making and the assignment of moderate to high complexity of this patient's medical issue today is based on review of the patient's past medical history, review of the patient's medication list, review the patient drug allergy list, history present illness and physical findings on examination. The workup in this patient includes placement of intravenous line, infusion of normal saline solution, urinalysis, CBC, CMP, magnesium level, chest x-ray with right rib x-ray, infusion of acyclovir intravenously Differential diagnosis includes but is not limited to weakness, electrolyte abnormalities, shingles, rib fractures, rib contusion, failure to thrive 07/09/24 21:14 I interpreted the preliminary report of the following x-ray studies: The x-ray of the right ribs shows no acute fracture of ribs and no pneumothorax. The portable chest x-ray shows no acute cardiopulmonary process. The final reports of the following radiographic studies were interpreted by the radiologist and I reviewed the impression: The x-ray of the right ribs show no acute fracture. The portable chest x-ray shows no acute cardiopulmonary process in the bony thorax is intact 07/09/24 21:17 I reassessed the patient. He is a bit hard of hearing but he understands that I am recommending that he be transferred to a facility where there is a photonics engineer since his troponin level is elevated. The patient is reexamined he has no chest pain and he is not short of breath. Patient wants to go home. He does not want to be admitted into our facility or be transferred to any other facility. The risks of not being placed in a hospital setting was discussed with the patient including worsening condition, heart attack and possible . The benefits of placing him into a facility where he will be monitored and where there is a photonics engineer will decrease his risk of having worsening condition, myocardial infarction and . He voices understanding. He is awake and he is alert and he is oriented. He has recognized the nurses that that he has known for years and remembered specifics about their life and knew their names. 07/09/24 21:36 The patient, with the insistence of his spouse, has decided to accept being transferred to [facility] in [facility]. 07/09/24 22:[address] Mendieta, the emergency room physician who is on-call at [facility]. I reviewed the patient's presenting complaint, history and physical exam findings and the results of our workup. Dr. Mendieta would like the patient to have a repeat troponin level. If there is a same or elevated they we will accept the patient. If it is significantly lower, I will attempt to speak with our telehospitalist to see if they will keep this patient here. Either way, we will let Dr. Mendieta know. Counseled pt/family regarding: lab results, diagnosis, rad results Medical Desision Making - Independent Historian Additional History obtained from: Spouse, Strike Operations Officer/EMT - Diagnostic Testing Diagnostic test were ordered, analyzed, and reviewed by me: Yes Radiological Interpretation: Interpreted by me, Reviewed by me, Teleradiologist Report - Risk of complications The pt has a high risk of morbidity or mortality based on: Decision regarding hospitilization or escalation of hosp level of care - Departure Departure Disposition: Transfer Clinical Impression: Elevated troponin, Elevated brain natriuretic peptide (BNP) level, Shingles rash, Decreased appetite Condition: Stable Critical Care Time: No Referrals: DOCTOR,NO FAMILY [Primary Care Provider, UNKNOWN] - Follow up/PCP as directed Additional Instructions: Drink plenty of clear liquids before advancing your diet. Avoid alcohol ingestion. Take your medications as prescribed. If you decide to be transferred to a hospital facility, you have the choice of going directly to that facility or return to our facility for workup and possible transfer if indicated and accepted. Prescriptions: Acyclovir 800 mg [Acyclovir] 800 mg PO 5XD #35 tablet
[2024-07-09] MEDS ORDERED: D5w 100ML Mini Bag 100 ML 100 ML IV ONE (18:04)
[2024-07-09] MEDS ORDERED: Zovirax INJ IV ONE (18:04)
[2024-07-09 18:07] LABS: Hematocrit 37.7 % (40.1-51.0); Hemoglobin 13.1 g/dL (13.7-17.5); Mean Cell Volume 88.5 fL (79.0-92.2); Mean Corpuscular Hemoglobin 30.8 pg (25.7-32.2); Mean Corpuscular Hgb Concent. 34.7 g/dL (32.3-36.5); Mean Platelet Volume 9.5 fL (9.4-12.4); Platelet Count 177 x10^3/uL (163-337); Red Blood Count 4.26 x10^6/uL (4.63-6.08); Red Cell Distribution Width 12.9 % (11.6-14.4); White Blood Count 6.8 x10^3/uL (4.23-9.07)
[2024-07-09] MEDS: Zovirax INJ*** 500 MG in D5w 100ML Mini Bag 100 ML 100 ML IV ONE (18:08)
[2024-07-09 18:21] LABS: ALBUMIN 3.7 g/dL (3.5-5.0); ALKALINE PHOSPHATASE 80 U/L (38-126); ANION GAP 11.9 MEQ/L (5-15); BLOOD UREA NITROGEN 24 mg/dL (9-20); CHLORIDE 99 mmol/L (98-107); Calcium 8.9 mg/dL (8.4-10.2); Carbon Dioxide 26 mmol/L (22-30); ETHYL ALCOHOL < 10 mg/dL (0-10); Glucose 134 mg/dL (74-106); MAGNESIUM 1.8 mg/dL (1.6-2.3); Potassium 4.3 mmol/L (3.5-5.1); SGOT/AST 126 U/L (17-59); SGPT/ALT 29 U/L (0-50); SODIUM 132 mmol/L (135-145); Total Protein 6.9 g/dL (6.3-8.2)
[2024-07-09 18:57] LABS: TROPONIN 0.326 ng/mL (0.000-0.033)
[2024-07-09 19:11] LABS: ATYPICAL LYMPHS 4 %; Eosinophil 1 % (0.8-7.0); Lymphocytes 13 % (21.8-53.1); Monocyte 6 % (5.3-12.2); Neutrophils 76 % (34.0-67.9); Platelet Estimate NORMAL (NORMAL); Total Cells Counted 100
[2024-07-09] MEDS ORDERED: Sodium Chloride 0.9% 1000 ML 1,000 ML ONE (19:20)
[2024-07-09] MEDS: Sodium Chloride 0.9% 1000 ML 1,000 ML IV SCH (19:21)
[2024-07-09 20:01] LABS: Appearance Clear (Clear); Bilirubin Negative (Negative); Blood Moderate (Negative); Epithelial Cells Rare /HPF (None Seen); Glucose, Urine Negative (Negative); Ketones 15 (Negative); Leukocyte Esterase Negative (Negative); Nitrite Negative (Negative); Ph 5.5 (4.6-8.0); Protein,Urine Dip 100 (Negative); RBC 0-2 /HPF (0-5); Specific Gravity 1.025 (1.005-1.030); WBC 0-2 /HPF (0-5)
[2024-07-09 20:02] LABS: Bacteria Moderate /HPF (None Seen)
--- NOTE | 2024-07-09 20:38 | XRAY ---
Indication: Pain following fall. Comparison: None 2 view right ribs demonstrates osteopenia, mild degenerative changes throughout spine, mild right shoulder degenerative arthropathy, and right lung base calcified granuloma. No acute bony, articular, or soft tissue abnormalities.
--- NOTE | 2024-07-09 20:40 | XRAY ---
Indication: Right rib pain following fall. Comparison: February 12, 2019 Portable chest demonstrates stable tiny right lung calcified granuloma. No focal infiltrate, consolidation, or large effusion. Heart not enlarged. Bony thorax intact again with osteopenia and mild degenerative changes. Impression: Nonacute chest with chronic features.
[2024-07-09 23:10] VITALS: BP 125/75; PULSE 99; RESP 48; TEMP 98
[2024-07-10 05:41] VITALS: O2SAT 96
== END 2024-07-09 23:57 | disposition short-term general hospital (02) ==
LOC: ED 17:22
DX: R79.89 Other specified abnormal findings of blood chemistry (principal); R77.8 Other specified abnormalities of plasma proteins; B02.9 Zoster without complications; R63.0 Anorexia; I21.4 Non-ST elevation (NSTEMI) myocardial infarction; R62.7 Adult failure to thrive; Z79.899 Other long term (current) drug therapy; Z72.0 Tobacco use
CPT/HCPCS: 36415; 71045; 71100; 80053; 81001; 82077; 83735; 83880; 84484; 85025; 87086; 93005; 94760; 96361; 96365; 99285; J0133